=== PATIENT | male | born 1950 | race African-American/Black ===

== ENCOUNTER 2017-05-02 09:51 | Inpatient (IN) | payer OTHER ==
[2017-05-02 10:12] VITALS: BMI 23.0
--- NOTE | 2017-05-02 10:39 | HP ---
CIWA Score - CIWA Score Nausea/Vomitin-Mild Nausea/No Vomiting Muscle Tremors: 4-Moderate,w/Arms Extend Anxiety: 4-Mod. Anxious/Guarded Agitation: 1-Slight > Activity Paroxysmal Sweats: 1-Minimal Palms Moist Orientation: 1-Uncertain about Date Tacttile Disturbances: 0-None Auditory Disturbances: 1-Very Mild Visual Disturbances: 1-Very Mild Sensitivity Headache: 1-Very Mild CIWA-Ar Total Score: 15 Admission ROS S - HPI Chief Complaint: I need to stop drinking and using, I'm tired Allergies/Adverse Reactions: Allergies Allergy/AdvReac Type Severity Reaction Status Date / Time naproxen Allergy Mild Nausea Verified 05/02/17 13:23 History of Present Illness: 66 yo gentleman here for detox from alcohol - also with HIV, HTN, diabetes with neuropathy. Patient states was in detox last year at [facility]. Denies any history of seizures. Exam Limitations: Clinical Condition - Ebola screening Have you traveled outside of the country in the last 21 days: No Have you had contact with anyone from an Ebola affected area: No Have you been sick,other than usual withdrawal symptoms: No Do you have a fever: No - Review of Systems Constitutional: Loss of Appetite, Changes in sleep, Weakness EENT: reports: Blurred Vision Respiratory: reports: No Symptoms reported Cardiac: reports: No Symptoms Reported GI: reports: Indigestion : reports: Frequency Musculoskeletal: reports: Joint Pain Neuro: reports: Numbness, Tremors Endocrine: reports: No Symptoms Reported Hematology: reports: No Symptoms Reported Psychiatric: reports: Judgement Intact, Mood/Affect Appropiate, Anxious Other Systems: Reviewed and Negative Patient History - Patient Medical History Hx Anemia: No Hx Asthma: No Hx Chronic Obstructive Pulmonary Disease (COPD): No Hx Cancer: No Hx Cardiac Disorders: No Hx Congestive Heart Failure: No Hx Hypertension: Yes Hx Hypercholesterolemia: No Hx Pacemaker: No HX Cerebrovascular Accident: No Hx Seizures: No Hx Dementia: No Hx Diabetes: Yes (oral meds, with neuropathy) Hx Gastrointestinal Disorders: No Hx Liver Disease: No Hx Genitourinary Disorders: No Hx Sexually Transmitted Disorders: No Hx Renal Disease (ESRD): No Hx Thyroid Disease: No Hx Human Immunodeficiency Virus (HIV): Yes (on meds - Tcells 250, inconsistent adherence) Hx Hepatitis C: No Hx Depression: No Hx Suicide Attempt: No Hx Bipolar Disorder: No Hx Schizophrenia: No - Patient Surgical History Past Surgical History: Yes Hx Abdominal Surgery: Yes (inguinal hernia repair right 1967) Hx Orthopedic Surgery: Yes (knee arthroscopy ) - PPD History Previous Implant?: Yes Documented Results: Positive w/o proof (states treated for one year with INH) PPD to be Administered?: No - Reproductive History Patient is a Female of Child Bearing Age (11 -55 yrs old): No (male) - Smoking Cessation Smoking history: Current every day smoker Have you smoked in the past 12 months: Yes Aproximately how many cigarettes per day: 6 Hx Chewing Tobacco Use: No Initiated information on smoking cessation: Yes 'Breaking Loose' booklet given: 05/02/17 (give on floor) - Substance & Tx. History Hx Alcohol Use: Yes Hx Substance Use: Yes Substance Use Type: Alcohol, Cocaine Hx Substance Use Treatment: Yes (detox) - Substances Abused Alcohol Route: Oral Frequency: Daily Amount used: twelve 16 oz beers; vodka 1/2 pint Age of first use: 18 Date of Last Use: 05/02/17 crack Route: Smoking Frequency: Daily Amount used: five $20 bags Age of first use: 35 Date of Last Use: 05/02/17 Marijuana/Hashish Route: Smoking Frequency: Daily Amount used: $40 Age of first use: 18 Date of Last Use: 05/02/17 Family Disease History - Family Disease History Family Disease History: Diabetes: Father (, ), Mother (, ), Brother (six - living), Sister (four - living), Heart Disease: Brother, Sister, Other: Father, Mother, Brother, Sister, Daughter (one - living - healthy) Admission Physical Exam S - Vital Signs Vital Signs: Vital Signs - 24 hr 05/02/17 10:01 Temperature 96.7 F L Pulse Rate 76 Respiratory 20 Rate Blood Pressure 129/71 - Physical General Appearance: Yes: Nourished, Appropriately Dressed, Mild Distress, Anxious HEENTM: Yes: Hearing grossly Normal, Normocephalic, Normal Voice, Pharynx Normal Respiratory: Yes: Normal Breath Sounds, No Respiratory Distress Neck: Yes: No masses,lesions,Nodules, Supple Breast: Yes: Breast Exam Deferred Cardiology: Yes: Regular Rhythm, Regular Rate Abdominal: Yes: Soft Genitourinary: Yes: Within Normal Limits Back: Yes: Normal Inspection Musculoskeletal: Yes: full range of Motion, Gait Steady Extremities: Yes: Normal Inspection, Normal Range of Motion, Non-Tender Neurological: Yes: Alert, Normal Mood/Affect, Normal Response Integumentary: Yes: Normal Color, Warm Lymphatic: Yes: Within Normal Limits - Addiitonal Findings: BGM = 153 - Diagnostic (1) Alcohol dependence with uncomplicated withdrawal Current Visit: Yes Status: Chronic (2) Crack cocaine use Current Visit: Yes Status: Chronic (3) Diabetes mellitus treated with oral medication Current Visit: Yes Status: Chronic (4) Diabetes mellitus with neuropathy Current Visit: Yes Status: Chronic Qualifiers: Diabetes mellitus type: type 2 Diabetes mellitus assistant terminal manager insulin use : without intermediate use Qualified Code(s): E11.40 - Type 2 diabetes mellitus with diabetic neuropathy, unspecified; E11.40 - Type 2 diabetes mellitus with diabetic neuropathy, unspecified; E11.40 - Type 2 diabetes mellitus with diabetic neuropathy, unspecified; E11.40 - Type 2 diabetes mellitus with diabetic neuropathy, unspecified; E11.40 - Type 2 diabetes mellitus with diabetic neuropathy, unspecified (5) Glaucoma Current Visit: Yes Status: Chronic Qualifiers: Glaucoma type: unspecified (6) HIV (human immunodeficiency virus infection) Current Visit: Yes Status: Chronic (7) HTN (hypertension) Current Visit: Yes Status: Chronic Qualifiers: Hypertension type: essential hypertension Qualified Code(s): I10 - Essential (primary) hypertension; I10 - Essential (primary) hypertension; I10 - Essential (primary) hypertension (8) Nicotine dependence Current Visit: Yes Status: Chronic Qualifiers: Nicotine product type: cigarettes (9) Osteoarthritis of both knees Current Visit: Yes Status: Chronic Qualifiers: Osteoarthritis type: primary Qualified Code(s): M17.0 - Bilateral primary osteoarthritis of knee; M17.0 - Bilateral primary osteoarthritis of knee (10) PPD positive, treated Current Visit: Yes Status: Chronic Cleared for Admission S - Detox or Rehab [facility] Level of Care: Medically Managed Detox Regimen/Protocol: Librium [facility] Breath Alcohol Content Breath Alcohol Content: 0 Urine Drug Screen - Results Drug Screen Negative: No Urine Drug Screen Results: THC-Marijuana, HELGA-Cocaine
[2017-05-02] MEDS ORDERED: MENTHOL/PHENOL 1 EACH UD MM PRN (10:56)
[2017-05-02] MEDS ORDERED: hydrOXYzine PAMOATE 50 MG CAPSULE (FP) PO PRN (10:56)
[2017-05-02] MEDS ORDERED: MAG HYDROX/AL HYDROX/SIMETH 30 ML UNIT-DOSE CUP PO PRN (10:56)
[2017-05-02] MEDS ORDERED: P-EPHED 60MG/TRIPROLIDI 2.5MG TABLET PO PRN (10:56)
[2017-05-02] MEDS ORDERED: MAGNESIUM CITRATE 300 ML BOTTLE PO PRN (10:56)
[2017-05-02] MEDS ORDERED: ACETAMINOPHEN 325 MG TABLET (FP) PO PRN (10:56)
[2017-05-02] MEDS ORDERED: chlordiazePOXIDE HCL 25 MG CAPSULE PO PRN (10:56)
[2017-05-02] MEDS ORDERED: guaiFENesin/D-METHORPHAN HB 10 ML UNIT-DOSE CUPS PO PRN (10:56)
[2017-05-02] MEDS ORDERED: MAGNESIUM HYDROX 2400MG/30ML ORAL SUSPENSION 30 ML CUP PO PRN (10:56)
[2017-05-02] MEDS ORDERED: chlordiazePOXIDE HCL 25 MG CAPSULE PO ONE (13:15)
[2017-05-02 15:11] LABS: URINE APPEARANCE CLEAR; URINE BILIRUBIN NEGATIVE (NEGATIVE); URINE BLOOD NEGATIVE (NEGATIVE); URINE COLOR YELLOW; URINE GLUCOSE (UA) NEGATIVE (NEGATIVE); URINE KETONE NEGATIVE (NEGATIVE); URINE NITRITE NEGATIVE (NEGATIVE); URINE PROTEIN NEGATIVE (NEGATIVE); URINE UROBILINOGEN NEGATIVE mg/dL (0.2-1.0)
[2017-05-02] MEDS: DARUNAVIR ETHANOLATE 600 MG TAB PO SCH (15:30)
[2017-05-02] MEDS: PATIENT'S OWN MEDICATION (NON-FORMULARY) (Dolutegravir Sodium 50 MG) PO SCH (15:30)
[2017-05-02] MEDS: EMTRICITABINE 200MG/TENOFOVIR 300MG PO SCH (15:31)
[2017-05-02] MEDS: METHYL SALICYLATE/MENTHOL OINT 30 GM TUBE TP SCH ×2 (15:32→22:32)
[2017-05-02] MEDS: RITONAVIR 100 MG TABLET PO SCH (15:33)
[2017-05-02] MEDS: GABAPENTIN 300 MG CAPSULE (FP) PO SCH ×2 (15:33→18:52)
[2017-05-02] MEDS ORDERED: INSULIN (NOVOLOG) ASPART 100 UNITS/ML 10ML VIAL ONE (17:06)
--- NOTE | 2017-05-02 17:19 | CONSULT ---
[facility] Psychiatric Consult - Data Date of interview: 05/02/17 Admission source: [facility] Identifying data: First admission to [facility] for this 66 y/o AA male seeking detox treatment on for alcohol,cocaine and marihuana dependence.Patient is ,a father of one,domiciled,unemployed and supported on SSI/SSD benefits. Substance Abuse History: Confirmed by patient in thisinterview. Smoking history : Current every day smoker. Have you smoked in the past 12 months: Yes. Aproximately how many cigarettes per day: 6. Hx Chewing Tobacco Use: No. Initiated information on smoking cessation: Yes. 'Breaking Loose' booklet given : 05/02/17 (give on floor). - Substance & Tx. History. Hx Alcohol Use: Yes. Hx Substance Use: Yes. Substance Use Type: Alcohol, Cocaine. Hx Substance Use Treatment: Yes (detox). - Substances Abused. Alcohol. Route: Oral. Frequency: Daily. Amount used: twelve 16 oz beers; vodka 1/2 pint. Age of first use: 18. Date of Last Use: 05/02/17. crack. Route: Smoking. Frequency: Daily. Amount used: five $20 bags. Age of first use: 35. Date of Last Use: 05/02/17. Marijuana/Hashish. Route: Smoking. Frequency: Daily. Amount used: $40. Age of first use: 18. Date of Last Use: 05/02/17 Medical History: Consistent with HIV infection since 1995 (on ART medications), diabetes mellitus,neuropathy,osteoarthritis,glaucoma,PPD positive (reportedly treated with INH in the past) and a distant history of inguinal herniorraphy + arthroscopy (knees). Psychiatric History: Patient denies. Physical/Sexual Abuse/Trauma History: Patient denies. Additional Comment: Urine Drug Screen Results: THC-Marijuana, HELGA-Cocaine.Noted. Mental Status Exam - Mental Status Exam Alert and Oriented to: Time, Place, Person Cognitive Function: Grossly Intact Patient Appearance: Well Groomed (tall stature) Mood: Withdrawn, Hopeful Affect: Appropriate, Normal Range Patient Behavior: Sedated (mildly sedated but conversant,articulate,well related ), Fatigued Speech Pattern: Clear, Appropriate Voice Loudness: Normal Thought Process: Intact, Goal Oriented Thought Disorder: Not Present Hallucinations: Denies Suicidal Ideation: Denies Homicidal Ideation: Denies Insight/Judgement: Poor Sleep: Well Appetite: Good Muscle strength/Tone: Normal Gait/Station: Normal Psychiatric Findings - Problem List ([place] 1, 2,3) (1) Alcohol dependence with uncomplicated withdrawal Current Visit: Yes Status: Chronic (2) Cocaine dependence Current Visit: Yes Status: Acute (3) Marihuana dependence Current Visit: Yes Status: Acute (4) Nicotine dependence Current Visit: Yes Status: Acute Qualifiers: Nicotine product type: cigarettes (5) Diabetes mellitus with neuropathy Current Visit: Yes Status: Chronic Qualifiers: Diabetes mellitus type: type 2 Diabetes mellitus prison insulin use : without prison use Qualified Code(s): E11.40 - Type 2 diabetes mellitus with diabetic neuropathy, unspecified; E11.40 - Type 2 diabetes mellitus with diabetic neuropathy, unspecified; E11.40 - Type 2 diabetes mellitus with diabetic neuropathy, unspecified; E11.40 - Type 2 diabetes mellitus with diabetic neuropathy, unspecified; E11.40 - Type 2 diabetes mellitus with diabetic neuropathy, unspecified (6) Glaucoma Current Visit: Yes Status: Chronic Qualifiers: Glaucoma type: unspecified (7) HIV (human immunodeficiency virus infection) Current Visit: Yes Status: Chronic (8) HTN (hypertension) Current Visit: Yes Status: Chronic Qualifiers: Hypertension type: essential hypertension Qualified Code(s): I10 - Essential (primary) hypertension; I10 - Essential (primary) hypertension; I10 - Essential (primary) hypertension (9) Osteoarthritis of both knees Current Visit: Yes Status: Chronic Qualifiers: Osteoarthritis type: primary Qualified Code(s): M17.0 - Bilateral primary osteoarthritis of knee; M17.0 - Bilateral primary osteoarthritis of knee (10) PPD positive, treated Current Visit: Yes Status: Chronic - Initial Treatment Plan Initial Treatment Plan: Psychoeducation.Detoxification.Observation.
[2017-05-02] MEDS: metFORMIN HCL 500 MG TABLET (FP) PO SCH (17:26)
[2017-05-02] MEDS: chlordiazePOXIDE HCL 25 MG CAPSULE PO SCH ×2 (17:28→22:35)
[2017-05-02] MEDS: INSULIN SLIDING SCALE (NOVOLOG) 1 VIAL SQ SCH ×2 (17:30→22:37)
[2017-05-02 17:42] LABS: URINE LEUK ESTERASE Negative (NEGATIVE)
[2017-05-02] MEDS ORDERED: PATIENT'S OWN MEDICATION (NON-FORMULARY) (Metformin Hcl [Glucophage] 1,000 MG) PO SCH (22:00)
[2017-05-02] MEDS: THIAMINE HCL 100 MG TABLET (FP) PO SCH (22:32)
[2017-05-02] MEDS: ATENOLOL 50 MG TABLET (FP) PO SCH (22:33)
[2017-05-02] MEDS: cloNIDine HCL 0.1 MG TABLET PO SCH (22:33)
[2017-05-02] MEDS: PRAVASTATIN SODIUM PO SCH (22:33)
[2017-05-02] MEDS: diphenhydrAMINE HCL 50 MG CAPSULE PO PRN (22:37)
[2017-05-02] MEDS: LATANOPROST 0.005% OPHTH SOLN 2.5ML BOTTLE OU SCH (22:38)
[2017-05-03] MEDS: GABAPENTIN 300 MG CAPSULE (FP) PO SCH ×4 (05:11→22:21)
[2017-05-03] MEDS: chlordiazePOXIDE HCL 25 MG CAPSULE PO SCH ×4 (06:06→22:22)
[2017-05-03] MEDS: metFORMIN HCL 500 MG TABLET (FP) PO SCH ×2 (06:28→17:34)
[2017-05-03] MEDS: glipiZIDE 10 MG TABLET (FP) PO SCH (06:29)
[2017-05-03] MEDS: INSULIN SLIDING SCALE (NOVOLOG) 1 VIAL SQ SCH ×4 (06:33→22:22)
[2017-05-03 09:48] LABS: MCH 25.6 pg (25.7-33.7); MCHC 32.3 g/dl (32.0-35.9); MEAN CELL VOLUME 79.3 fl (80-96); MEAN PLT VOLUME 9.8 fl (7.5-11.1); PLATELET COUNT 144 K/MM3 (134-434); RDW 17.4 % (11.9-15.9)
[2017-05-03] MEDS ORDERED: PATIENT'S OWN MEDICATION (NON-FORMULARY) (Losartan/Hydrochlorothiazide [Losartan-Hctz 100- PO SCH (10:00)
[2017-05-03 10:06] LABS: ALBUMIN 2.8 g/dl (3.4-5.0); ALK PHOS 44 U/L (45-117); ANION GAP 6 (8-16); BILIRUBIN,TOTAL 0.2 mg/dL (0.2-1.0); CALCIUM 7.9 mg/dL (8.5-10.1); CO2 27 mmol/L (21-32); CREATININE 1.1 mg/dL (0.7-1.3); GLUCOSE,RANDOM 109 mg/dL (74-106); SGOT/AST 16 U/L (15-37); SGPT/ALT 17 U/L (12-78); TOT PROT 6.4 g/dl (6.4-8.2)
[2017-05-03] MEDS: PATIENT'S OWN MEDICATION (NON-FORMULARY) (Dolutegravir Sodium 50 MG) PO SCH (10:41)
[2017-05-03] MEDS: ASPIRIN 81 MG CHEWABLE TABLETS PO SCH (10:43)
[2017-05-03] MEDS: LOSARTAN 50MG/HCTZ 12.5MG 1 TAB (FP) PO SCH (10:43)
[2017-05-03] MEDS: cloNIDine HCL 0.1 MG TABLET PO SCH ×2 (10:43→22:22)
[2017-05-03] MEDS: RITONAVIR 100 MG TABLET PO SCH (10:44)
[2017-05-03] MEDS: PRENATAL VITAMINS W/ FOLIC ACID TABLET (FP) PO SCH (10:44)
[2017-05-03] MEDS: DARUNAVIR ETHANOLATE 600 MG TAB PO SCH (10:44)
[2017-05-03] MEDS: METHYL SALICYLATE/MENTHOL OINT 30 GM TUBE TP SCH ×2 (10:44→22:21)
[2017-05-03] MEDS: EMTRICITABINE 200MG/TENOFOVIR 300MG PO SCH (10:45)
[2017-05-03] MEDS: ATENOLOL 50 MG TABLET (FP) PO SCH ×2 (10:45→22:22)
--- NOTE | 2017-05-03 11:03 | EKG ---
Test Reason : Blood Pressure : / mmHG Vent. Rate : 074 BPM Atrial Rate : 074 BPM P-R Int : 152 ms QRS Dur : 084 ms QT Int : 400 ms P-R-T Axes : 066 043 -18 degrees QTc Int : 444 ms SINUS RHYTHM WITH PREMATURE ATRIAL COMPLEXES ABNORMAL ECG NO PREVIOUS ECGS AVAILABLE CLINICAL CORRELATION IS RECOMMENDED Confirmed by MARIA L KHOURY, KISHOR ([id number]) on 05/03/2017 11:02:41 AM Referred By: Confirmed By:KISHOR LISA MD
--- NOTE | 2017-05-03 17:15 | PN ---
S CIWA - CIWA Score Nausea/Vomitin Muscle Tremors: 4-Moderate,w/Arms Extend Anxiety: 4-Mod. Anxious/Guarded Agitation: 4-Moderately Restless Paroxysmal Sweats: 3 Orientation: 0-Oriented Tacttile Disturbances: 1-Very Mild Itch/Numbness Auditory Disturbances: 0-None Visual Disturbances: 0-None Headache: 1-Very Mild CIWA-Ar Total Score: 19 BHS Progress Note (SOAP) Subjective: Sweating, anxious, interrupted sleep, nausea Objective: 05/03/17 17:12 Last Vital Signs Temp Pulse Resp BP Pulse Ox 97.3 F L 68 19 124/73 05/03/17 13:20 05/03/17 13:20 05/03/17 13:20 05/03/17 13:20 Laboratory Tests 05/02/17 05/02/17 05/02/17 13:22 13:45 16:39 WBC RBC Hgb Hct MCV MCH MCHC RDW Plt Count MPV Sodium Potassium Chloride Carbon Dioxide Anion Gap BUN Creatinine Creat Clearance w eGFR POC Glucometer 153 194 Random Glucose Calcium Total Bilirubin AST ALT Alkaline Phosphatase Total Protein Albumin Urine Color Yellow Urine Appearance Clear Urine pH 6.0 Ur Specific [place] 1.020 Urine Protein Negative Urine Glucose (UA) Negative Urine Ketones Negative Urine Blood Negative Urine Nitrite Negative Urine Bilirubin Negative Urine Urobilinogen Negative Ur Leukocyte Esterase Negative RPR Titer 05/03/17 05/03/17 05/03/17 06:05 07:30 07:30 WBC 4.0 RBC 3.73 L Hgb 9.5 L Hct 29.6 L MCV 79.3 L MCH 25.6 L MCHC 32.3 RDW 17.4 H Plt Count 144 MPV 9.8 Sodium 143 Potassium 4.0 Chloride 110 H Carbon Dioxide 27 Anion Gap 6 L BUN 13 Creatinine 1.1 Creat Clearance w eGFR > 60 POC Glucometer 127 Random Glucose 109 H Calcium 7.9 L Total Bilirubin 0.2 AST 16 ALT 17 Alkaline Phosphatase 44 L Total Protein 6.4 Albumin 2.8 L Urine Color Urine Appearance Urine pH Ur Specific [place] Urine Protein Urine Glucose (UA) Urine Ketones Urine Blood Urine Nitrite Urine Bilirubin Urine Urobilinogen Ur Leukocyte Esterase RPR Titer 05/03/17 05/03/17 07:30 16:21 WBC RBC Hgb Hct MCV MCH MCHC RDW Plt Count MPV Sodium Potassium Chloride Carbon Dioxide Anion Gap BUN Creatinine Creat Clearance w eGFR POC Glucometer 116 Random Glucose Calcium Total Bilirubin AST ALT Alkaline Phosphatase Total Protein Albumin Urine Color Urine Appearance Urine pH Ur Specific [place] Urine Protein Urine Glucose (UA) Urine Ketones Urine Blood Urine Nitrite Urine Bilirubin Urine Urobilinogen Ur Leukocyte Esterase RPR Titer Nonreactive Labs reviewed Assessment: 05/03/17 17:15 Withdrawal symptoms Plan: Continue detox
[2017-05-03] MEDS: LOPERAMIDE HCL 2 MG CAPSULE PO PRN (20:37)
[2017-05-03] MEDS: THIAMINE HCL 100 MG TABLET (FP) PO SCH (22:21)
[2017-05-03] MEDS: PRAVASTATIN SODIUM PO SCH (22:22)
[2017-05-03] MEDS: LATANOPROST 0.005% OPHTH SOLN 2.5ML BOTTLE OU SCH (22:23)
[2017-05-04] MEDS: chlordiazePOXIDE HCL 25 MG CAPSULE PO SCH ×2 (05:47→13:52)
[2017-05-04] MEDS: GABAPENTIN 300 MG CAPSULE (FP) PO SCH ×3 (05:47→21:23)
[2017-05-04] MEDS: LOPERAMIDE HCL 2 MG CAPSULE PO PRN (05:48)
[2017-05-04] MEDS: glipiZIDE 10 MG TABLET (FP) PO SCH (06:30)
[2017-05-04] MEDS: metFORMIN HCL 500 MG TABLET (FP) PO SCH ×2 (06:31→16:54)
[2017-05-04] MEDS: INSULIN SLIDING SCALE (NOVOLOG) 1 VIAL SQ SCH ×4 (06:32→21:32)
--- NOTE | 2017-05-04 10:17 | EKG ---
Test Reason : Blood Pressure : / mmHG Vent. Rate : 069 BPM Atrial Rate : 069 BPM P-R Int : 152 ms QRS Dur : 086 ms QT Int : 398 ms P-R-T Axes : 066 052 -42 degrees QTc Int : 426 ms SINUS RHYTHM WITH PREMATURE ATRIAL COMPLEXES T WAVE ABNORMALITY, CONSIDER LATERAL ISCHEMIA ABNORMAL ECG WHEN COMPARED WITH ECG OF 02-MAY-2017 14:27, NO SIGNIFICANT CHANGE WAS FOUND Confirmed by DYLLAN KHOURY, SAL ([id number]) on 05/04/2017 10:17:25 AM Referred By: Confirmed By:ASL MIJARES MD
--- NOTE | 2017-05-04 11:44 | PN ---
[facility] CIWA - CIWA Score Nausea/Vomitin Muscle Tremors: None Anxiety: 4-Mod. Anxious/Guarded Agitation: 3 Paroxysmal Sweats: No Perspiration Orientation: 0-Oriented Tacttile Disturbances: 3-Moderate Itch/Numb/Burn Auditory Disturbances: 1-Very Mild Visual Disturbances: 3-Moderate Sensitivity Headache: 0-None Present CIWA-Ar Total Score: 17 BHS Progress Note (SOAP) Subjective: Diarrhea, Nausea, interrupted sleep. Objective: PT. A & O X 3, OBSERVED AMBULATING ON UNIT. NO ACUTE DISTRESS. PT. DENIES CHEST PAIN. 05/04/17 11:41 Vital Signs Temperature 97.4 F L 05/04/17 09:15 Pulse Rate 65 05/04/17 09:15 Respiratory Rate 20 05/04/17 09:15 Blood Pressure 128/76 05/04/17 09:15 O2 Sat by Pulse Oximetry (%) Laboratory Tests 05/02/17 05/02/17 05/02/17 13:22 13:45 16:39 WBC RBC Hgb Hct MCV MCH MCHC RDW Plt Count MPV Sodium Potassium Chloride Carbon Dioxide Anion Gap BUN Creatinine Creat Clearance w eGFR POC Glucometer 153 194 Random Glucose Calcium Total Bilirubin AST ALT Alkaline Phosphatase Total Protein Albumin Urine Color Yellow Urine Appearance Clear Urine pH 6.0 Ur Specific [place] 1.020 Urine Protein Negative Urine Glucose (UA) Negative Urine Ketones Negative Urine Blood Negative Urine Nitrite Negative Urine Bilirubin Negative Urine Urobilinogen Negative Ur Leukocyte Esterase Negative RPR Titer 05/02/17 05/03/17 05/03/17 21:34 06:05 07:30 WBC 4.0 RBC 3.73 L Hgb 9.5 L Hct 29.6 L MCV 79.3 L MCH 25.6 L MCHC 32.3 RDW 17.4 H Plt Count 144 MPV 9.8 Sodium Potassium Chloride Carbon Dioxide Anion Gap BUN Creatinine Creat Clearance w eGFR POC Glucometer 126 127 Random Glucose Calcium Total Bilirubin AST ALT Alkaline Phosphatase Total Protein Albumin Urine Color Urine Appearance Urine pH Ur Specific [place] Urine Protein Urine Glucose (UA) Urine Ketones Urine Blood Urine Nitrite Urine Bilirubin Urine Urobilinogen Ur Leukocyte Esterase RPR Titer 05/03/17 05/03/17 05/03/17 07:30 07:30 11:41 WBC RBC Hgb Hct MCV MCH MCHC RDW Plt Count MPV Sodium 143 Potassium 4.0 Chloride 110 H Carbon Dioxide 27 Anion Gap 6 L BUN 13 Creatinine 1.1 Creat Clearance w eGFR > 60 POC Glucometer 122 Random Glucose 109 H Calcium 7.9 L Total Bilirubin 0.2 AST 16 ALT 17 Alkaline Phosphatase 44 L Total Protein 6.4 Albumin 2.8 L Urine Color Urine Appearance Urine pH Ur Specific [place] Urine Protein Urine Glucose (UA) Urine Ketones Urine Blood Urine Nitrite Urine Bilirubin Urine Urobilinogen Ur Leukocyte Esterase RPR Titer Nonreactive 05/03/17 05/03/17 05/04/17 16:21 21:49 05:46 WBC RBC Hgb Hct MCV MCH MCHC RDW Plt Count MPV Sodium Potassium Chloride Carbon Dioxide Anion Gap BUN Creatinine Creat Clearance w eGFR POC Glucometer 116 145 118 Random Glucose Calcium Total Bilirubin AST ALT Alkaline Phosphatase Total Protein Albumin Urine Color Urine Appearance Urine pH Ur Specific [place] Urine Protein Urine Glucose (UA) Urine Ketones Urine Blood Urine Nitrite Urine Bilirubin Urine Urobilinogen Ur Leukocyte Esterase RPR Titer LABS NOTED. Assessment: 05/04/17 11:42 WITHDRAWAL SYMPTOMS. ANEMIA. Plan: CONTINUE DETOX. FEOSOL, 325 MG PO TID WITH MEALS. REPEAT CBC ON 05/05/2017 FOR LOW ADMISSION VALUES. PRN IMMODIUM FOR DIARRHEA. PRN ZOFRAN SL FOR NAUSEA / VOMITING. PATIENT REPORTS THAT HE TAKES TIVICAY, PREZISTA, NORVIR, AND TRUVADA AT DINNERTIME WHILE AT HOME. MEDICATION TIMES CHANGED ACCORDINGLY. ACCORDING TO PHARMACIST AT PT.'S PHARMACY ([facility], [place], [place] PT.'S CURRENTLY PRESCRIBED DAILY DOSE OF PREZISTA IS 800 MG PO DAILY. DAILY DOSAGE OF PREZISTA CHANGED ACCORDINGLY. INCREASE DAILY PO FLUID INTAKE.
[2017-05-04] MEDS ORDERED: ONDANSETRON *ODT* 4 MG TABLET SL PRN (11:46)
[2017-05-04] MEDS: ASPIRIN 81 MG CHEWABLE TABLETS PO SCH (13:51)
[2017-05-04] MEDS: LOSARTAN 50MG/HCTZ 12.5MG 1 TAB (FP) PO SCH (13:51)
[2017-05-04] MEDS: FERROUS SO4 325 MG TABLET (FP) PO SCH ×2 (13:51→17:14)
[2017-05-04] MEDS: METHYL SALICYLATE/MENTHOL OINT 30 GM TUBE TP SCH ×2 (13:51→22:00)
[2017-05-04] MEDS: cloNIDine HCL 0.1 MG TABLET PO SCH ×2 (13:51→21:23)
[2017-05-04] MEDS: RITONAVIR 100 MG TABLET PO SCH ×2 (13:52→17:30)
[2017-05-04] MEDS: DARUNAVIR ETHANOLATE 600 MG TAB PO SCH (13:52)
[2017-05-04] MEDS: PATIENT'S OWN MEDICATION (NON-FORMULARY) (Dolutegravir Sodium 50 MG) PO SCH ×2 (13:52→17:17)
[2017-05-04] MEDS: ATENOLOL 50 MG TABLET (FP) PO SCH ×2 (13:52→21:23)
[2017-05-04] MEDS: PRENATAL VITAMINS W/ FOLIC ACID TABLET (FP) PO SCH (13:52)
[2017-05-04] MEDS: EMTRICITABINE 200MG/TENOFOVIR 300MG PO SCH ×2 (13:53→17:17)
[2017-05-04] MEDS: chlordiazePOXIDE 5 MG CAPSULE PO SCH ×2 (16:54→22:24)
[2017-05-04] MEDS: DARUNAVIR ETHANOLATE 800 MG TAB PO SCH (17:18)
[2017-05-04] MEDS ORDERED: DARUNAVIR ETHANOLATE 600 MG TAB PO SCH (17:30)
[2017-05-04] MEDS: THIAMINE HCL 100 MG TABLET (FP) PO SCH (21:21)
[2017-05-04] MEDS: LATANOPROST 0.005% OPHTH SOLN 2.5ML BOTTLE OU SCH (21:21)
[2017-05-04] MEDS: PRAVASTATIN SODIUM PO SCH (21:22)
[2017-05-05] MEDS: LOPERAMIDE HCL 2 MG CAPSULE PO PRN ×2 (00:25→11:31)
[2017-05-05] MEDS ORDERED: DIPHENOXYLATE 2.5/ATROPINE.025 1 COMBO TABLET PO ONE (06:09)
--- NOTE | 2017-05-05 06:13 | PN ---
S Progress Note Note: having diarrhea,will give lomotil 1 tab po now,close monitoring
[2017-05-05] MEDS: chlordiazePOXIDE 5 MG CAPSULE PO SCH ×2 (06:22→10:48)
[2017-05-05] MEDS: glipiZIDE 10 MG TABLET (FP) PO SCH (06:33)
[2017-05-05] MEDS: metFORMIN HCL 500 MG TABLET (FP) PO SCH ×2 (06:33→16:30)
[2017-05-05] MEDS: GABAPENTIN 300 MG CAPSULE (FP) PO SCH ×3 (06:33→22:26)
[2017-05-05] MEDS: INSULIN SLIDING SCALE (NOVOLOG) 1 VIAL SQ SCH ×4 (07:35→21:40)
[2017-05-05 10:07] LABS: BASOPHIL 0.5 % (0-2.0); EOSINOPHIL 2.2 % (0-4.5); MCH 25.9 pg (25.7-33.7); MCHC 32.6 g/dl (32.0-35.9); MEAN CELL VOLUME 79.5 fl (80-96); MEAN PLT VOLUME 9.9 fl (7.5-11.1); PLATELET COUNT 150 K/MM3 (134-434); WHITE BLOOD COUNT 4.6 K/mm3 (4.0-10.0)
[2017-05-05] MEDS: cloNIDine HCL 0.1 MG TABLET PO SCH ×2 (10:47→22:26)
[2017-05-05] MEDS: PRENATAL VITAMINS W/ FOLIC ACID TABLET (FP) PO SCH (10:48)
[2017-05-05] MEDS: ASPIRIN 81 MG CHEWABLE TABLETS PO SCH (10:48)
[2017-05-05] MEDS: FERROUS SO4 325 MG TABLET (FP) PO SCH ×3 (10:48→17:55)
[2017-05-05] MEDS: ATENOLOL 50 MG TABLET (FP) PO SCH ×2 (10:48→22:26)
[2017-05-05] MEDS: LOSARTAN 50MG/HCTZ 12.5MG 1 TAB (FP) PO SCH (10:48)
[2017-05-05] MEDS: METHYL SALICYLATE/MENTHOL OINT 30 GM TUBE TP SCH ×2 (10:48→22:27)
--- NOTE | 2017-05-05 12:45 | PN ---
BHS Progress Note (SOAP) Subjective: Anxious, Diarrhea. Pt. reports that diarrhea persists, although it seems to be subsiding slowly as time passes. Pt. denies Nausea, Vomiting, and abdominal discomfort. Objective: PT. A & O X 3, OBSERVED AMBULATING ON UNIT. NO ACUTE DISTRESS. 05/05/17 12:40 Vital Signs Temperature 96.8 F L 05/05/17 09:44 Pulse Rate 74 05/05/17 09:44 Respiratory Rate 18 05/05/17 09:44 Blood Pressure 128/68 05/05/17 09:44 O2 Sat by Pulse Oximetry (%) Laboratory Tests 05/02/17 05/02/17 05/02/17 13:22 13:45 16:39 WBC RBC Hgb Hct MCV MCH MCHC RDW Plt Count MPV Neutrophils % Lymphocytes % Monocytes % Eosinophils % Basophils % Sodium Potassium Chloride Carbon Dioxide Anion Gap BUN Creatinine Creat Clearance w eGFR POC Glucometer 153 194 Random Glucose Calcium Total Bilirubin AST ALT Alkaline Phosphatase Total Protein Albumin Urine Color Yellow Urine Appearance Clear Urine pH 6.0 Ur Specific [place] 1.020 Urine Protein Negative Urine Glucose (UA) Negative Urine Ketones Negative Urine Blood Negative Urine Nitrite Negative Urine Bilirubin Negative Urine Urobilinogen Negative Ur Leukocyte Esterase Negative RPR Titer 05/02/17 05/03/17 05/03/17 21:34 06:05 07:30 WBC 4.0 RBC 3.73 L Hgb 9.5 L Hct 29.6 L MCV 79.3 L MCH 25.6 L MCHC 32.3 RDW 17.4 H Plt Count 144 MPV 9.8 Neutrophils % Lymphocytes % Monocytes % Eosinophils % Basophils % Sodium Potassium Chloride Carbon Dioxide Anion Gap BUN Creatinine Creat Clearance w eGFR POC Glucometer 126 127 Random Glucose Calcium Total Bilirubin AST ALT Alkaline Phosphatase Total Protein Albumin Urine Color Urine Appearance Urine pH Ur Specific [place] Urine Protein Urine Glucose (UA) Urine Ketones Urine Blood Urine Nitrite Urine Bilirubin Urine Urobilinogen Ur Leukocyte Esterase RPR Titer 05/03/17 05/03/17 05/03/17 07:30 07:30 11:41 WBC RBC Hgb Hct MCV MCH MCHC RDW Plt Count MPV Neutrophils % Lymphocytes % Monocytes % Eosinophils % Basophils % Sodium 143 Potassium 4.0 Chloride 110 H Carbon Dioxide 27 Anion Gap 6 L BUN 13 Creatinine 1.1 Creat Clearance w eGFR > 60 POC Glucometer 122 Random Glucose 109 H Calcium 7.9 L Total Bilirubin 0.2 AST 16 ALT 17 Alkaline Phosphatase 44 L Total Protein 6.4 Albumin 2.8 L Urine Color Urine Appearance Urine pH Ur Specific [place] Urine Protein Urine Glucose (UA) Urine Ketones Urine Blood Urine Nitrite Urine Bilirubin Urine Urobilinogen Ur Leukocyte Esterase RPR Titer Nonreactive 05/03/17 05/03/17 05/04/17 16:21 21:49 05:46 WBC RBC Hgb Hct MCV MCH MCHC RDW Plt Count MPV Neutrophils % Lymphocytes % Monocytes % Eosinophils % Basophils % Sodium Potassium Chloride Carbon Dioxide Anion Gap BUN Creatinine Creat Clearance w eGFR POC Glucometer 116 145 118 Random Glucose Calcium Total Bilirubin AST ALT Alkaline Phosphatase Total Protein Albumin Urine Color Urine Appearance Urine pH Ur Specific [place] Urine Protein Urine Glucose (UA) Urine Ketones Urine Blood Urine Nitrite Urine Bilirubin Urine Urobilinogen Ur Leukocyte Esterase RPR Titer 05/04/17 05/04/17 05/05/17 16:13 20:46 06:31 WBC RBC Hgb Hct MCV MCH MCHC RDW Plt Count MPV Neutrophils % Lymphocytes % Monocytes % Eosinophils % Basophils % Sodium Potassium Chloride Carbon Dioxide Anion Gap BUN Creatinine Creat Clearance w eGFR POC Glucometer 158 144 118 Random Glucose Calcium Total Bilirubin AST ALT Alkaline Phosphatase Total Protein Albumin Urine Color Urine Appearance Urine pH Ur Specific [place] Urine Protein Urine Glucose (UA) Urine Ketones Urine Blood Urine Nitrite Urine Bilirubin Urine Urobilinogen Ur Leukocyte Esterase RPR Titer 05/05/17 07:00 WBC 4.6 RBC 3.91 L Hgb 10.1 L Hct 31.0 L MCV 79.5 L MCH 25.9 MCHC 32.6 RDW 17.0 H Plt Count 150 MPV 9.9 Neutrophils % 54.0 Lymphocytes % 33.2 Monocytes % 10.1 Eosinophils % 2.2 Basophils % 0.5 Sodium Potassium Chloride Carbon Dioxide Anion Gap BUN Creatinine Creat Clearance w eGFR POC Glucometer Random Glucose Calcium Total Bilirubin AST ALT Alkaline Phosphatase Total Protein Albumin Urine Color Urine Appearance Urine pH Ur Specific [place] Urine Protein Urine Glucose (UA) Urine Ketones Urine Blood Urine Nitrite Urine Bilirubin Urine Urobilinogen Ur Leukocyte Esterase RPR Titer LABS NOTED. RESULTS OF REPEAT CBC NOTED. 05/05/17 12:47 Assessment: 05/05/17 12:41 WITHDRAWAL SYMPTOMS. Plan: CONTINUE DETOX. PRN IMMODIUM FOR DIARRHEA. NUTRITIONAL CONSULT FOR DIETARY RECOMMENDATIONS TO HELP ALLEVIATE DIARRHEA. INCREASE DAILY PO FLUID INTAKE. PATIENT ALSO REPORTING THAT ALTHOUGH HE HAD BEEN TAKING HIS CURRENT HIV MEDICATION REGIMEN FOR SEVERAL DAY PRIOR TO ADMISSION TO DETOX, HE HAD NOT BEEN TAKING IT FOR APPROX. 9 MONTHS PRIOR TO THAT, NOR HAD HE GONE TO HIS HIV MEDICAL PROVIDER DR. Linden TRACY OF [facility] ([place], ..). PATIENT ADVISED TO FOLLOW-UP FOR MEDICAL / HIV EVALUATION SOON POSSIBLE AFTER DISCHARGE FROM DETOX WITH DR. TRACY.
[2017-05-05] MEDS: chlordiazePOXIDE HCL 10 MG CAPSULE PO SCH ×2 (17:42→22:26)
[2017-05-05] MEDS: PATIENT'S OWN MEDICATION (NON-FORMULARY) (Dolutegravir Sodium 50 MG) PO SCH (17:43)
[2017-05-05] MEDS: RITONAVIR 100 MG TABLET PO SCH (17:45)
[2017-05-05] MEDS: DARUNAVIR ETHANOLATE 800 MG TAB PO SCH (17:45)
[2017-05-05] MEDS: EMTRICITABINE 200MG/TENOFOVIR 300MG PO SCH (17:45)
[2017-05-05] MEDS: LATANOPROST 0.005% OPHTH SOLN 2.5ML BOTTLE OU SCH (22:25)
[2017-05-05] MEDS: THIAMINE HCL 100 MG TABLET (FP) PO SCH (22:25)
[2017-05-05] MEDS: PRAVASTATIN SODIUM PO SCH (22:26)
[2017-05-05] MEDS: diphenhydrAMINE HCL 50 MG CAPSULE PO PRN (22:28)
[2017-05-06] MEDS: chlordiazePOXIDE HCL 10 MG CAPSULE PO SCH (05:58)
[2017-05-06] MEDS: glipiZIDE 10 MG TABLET (FP) PO SCH (06:01)
[2017-05-06] MEDS: metFORMIN HCL 500 MG TABLET (FP) PO SCH (06:01)
[2017-05-06] MEDS: GABAPENTIN 300 MG CAPSULE (FP) PO SCH (06:01)
[2017-05-06] MEDS: FERROUS SO4 325 MG TABLET (FP) PO SCH (07:53)
[2017-05-06] MEDS: INSULIN SLIDING SCALE (NOVOLOG) 1 VIAL SQ SCH (07:54)
[2017-05-06 09:54] VITALS: BP 133/77; PULSE 73; TEMP 97.4
--- NOTE | 2017-05-06 11:28 | DS ---
[facility] Detox Discharge Summary Admission Date: 05/02/17 - Physical Exam Results Vital Signs: Vital Signs Temperature 97.4 F L 05/06/17 09:53 Pulse Rate 73 05/06/17 09:53 Respiratory Rate 18 05/06/17 09:53 Blood Pressure 133/77 05/06/17 09:53 O2 Sat by Pulse Oximetry (%) - Treatment Hospital Course: Detox Protocol Followed, Detoxed Safely, Responded well, Discharged Condition Good - Medication Discharge Medications: Ambulatory Orders Aspirin [ASA -] 81 mg PO DAILY 05/02/17 Atenolol [Tenormin -] 50 mg PO BID 05/02/17 Clonidine HCl [Catapres -] 0.1 mg PO BID 05/02/17 Darunavir Ethanolate [Prezista -] 600 mg PO DAILY 05/02/17 Dolutegravir Sodium [Tivicay] 50 mg PO DAILY 05/02/17 Emtricitabine/Tenofovir [Truvada] 1 tab PO DAILY 05/02/17 Gabapentin [Neurontin -] 300 mg PO Q8H 05/02/17 Glipizide [Glucotrol -] 10 mg PO DAILY 05/02/17 Latanoprost 0.005% Eye Drops [Xalatan 0.005% Eye Drops -] 1 drop OU HS 05/02/17 Losartan/Hydrochlorothiazide [Losartan-Hctz 100-25 mg Tab] 1 each PO DAILY 05/02 Metformin HCl [Glucophage] 1,000 mg PO BID 05/02/17 Methyl Salicylate/Menthol Oint [Olman-Pope -] 1 applic TP BID #1 tube 05/02/17 Pravastatin Sodium [Pravachol (Nf)] 40 mg PO HS 05/02/17 Ritonavir [Norvir -] 100 mg PO DAILY 05/02/17
== END 2017-05-06 09:30 | disposition home or self-care (01) | DRG 897 ==
LOC: YASAS 09:51 → Y3N 12:51
PROVIDERS: ADMIT Internal Medicine; ATTEND Internal Medicine
PROC: HZ2ZZZZ Detoxification Services for Substance Abuse Treatment (ICD-10-PCS; principal; 2017-05-02)
DX: F10.230 Alcohol dependence with withdrawal, uncomplicated (principal); F14.20 Cocaine dependence, uncomplicated; F12.20 Cannabis dependence, uncomplicated; F17.210 Nicotine dependence, cigarettes, uncomplicated; Z21 Asymptomatic human immunodeficiency virus [HIV] infection status; E11.40 Type 2 diabetes mellitus with diabetic neuropathy, unspecified; H40.9 Unspecified glaucoma; D64.9 Anemia, unspecified; B18.2 Chronic viral hepatitis C; I10 Essential (primary) hypertension; M17.0 Bilateral primary osteoarthritis of knee; R76.11 Nonspecific reaction to tuberculin skin test without active tuberculosis; Z79.84 Long term (current) use of oral hypoglycemic drugs; Z79.82 Long term (current) use of aspirin; Z88.6 Allergy status to analgesic agent
CPT/HCPCS: 36415; 71020-TC; 80053; 81003; 85025; 85027; 86593; 93005; 93010